=== PATIENT | female | born 1935 | race Caucasian/White ===

== ENCOUNTER 2017-12-14 14:00 | Inpatient (IN) | payer OTHER ==
[~2017-12-14] VITALS: Ht 157.5 cm; Wt 48.5 kg
[2017-12-14] MEDS ORDERED: COUMADIN2.5 MG (14:24)
[2017-12-14] MEDS ORDERED: METFORMIN HCL500 MG (14:24)
[2017-12-14] MEDS ORDERED: AVAPRO300 MG (14:26)
[2017-12-14] MEDS ORDERED: HYDRODIURIL12.5 MG (14:26)
[2017-12-14] MEDS ORDERED: GABAPENTIN100 MG (14:27)
[2017-12-14] MEDS ORDERED: FLONASE16 GM (14:27)
[2017-12-14] MEDS ORDERED: CLARITIN5 MG (14:27)
[2018-01-02] MEDS ORDERED: AVAPRO300 MG PO (14:11)
[2018-01-02] MEDS ORDERED: LASIX20 MG PO (14:11)
[2018-01-02] MEDS ORDERED: COUMADIN4 MG PO (14:11)
[2018-01-02] MEDS ORDERED: NeurRONTin 100mg cap PO (14:11)
[2018-01-02] MEDS ORDERED: DOXYCYCLINE HY100 MG PO (14:11)
[2018-01-02] MEDS ORDERED: TOPROL XL50 M1 PO (14:11)
[2018-01-02] MEDS ORDERED: Neurin-Sl Tablet Sl SL (14:11)
[2018-01-02] MEDS ORDERED: PANTOPRAZOLE SO40 MG PO (14:11)
[2018-01-02] MEDS ORDERED: B Complex CAPSULE PO (14:11)
[2018-01-02] MEDS ORDERED: FOLIC ACID1 MG PO (14:11)
== END 2018-01-02 19:29 | disposition home or self-care (01) | DRG 329 ==
LOC: EDBD 14:00 → ER 14:00 → MEDJ 21:50 → SEC-K 21:50 → EDBD 21:50 → SEC-K 22:25 → MEDI 12-15 14:41 → MEDJ 12-15 14:41
PROVIDERS: Colon & Rectal Surgery
PROC: B44HZZZ Ultrasonography of Bilateral Lower Extremity Arteries (ICD-10-PCS; 2017-12-14)
PROC: B54DZZZ Ultrasonography of Bilateral Lower Extremity Veins (ICD-10-PCS; 2017-12-14)
PROC: BW21ZZZ Computerized Tomography (CT Scan) of Abdomen and Pelvis (ICD-10-PCS; 2017-12-14)
PROC: B246ZZZ Ultrasonography of Right and Left Heart (ICD-10-PCS; 2017-12-14)
PROC: 30233N1 Transfusion of Nonautologous Red Blood Cells into Peripheral Vein, Percutaneous Approach (ICD-10-PCS; 2017-12-15)
PROC: 4A12X4Z Monitoring of Cardiac Electrical Activity, External Approach (ICD-10-PCS; 2017-12-15)
PROC: 4A033R1 Measurement of Arterial Saturation, Peripheral, Percutaneous Approach (ICD-10-PCS; 2017-12-21)
PROC: 3E0F7GC Introduction of Other Therapeutic Substance into Respiratory Tract, Via Natural or Artificial Opening (ICD-10-PCS; 2017-12-21)
PROC: 30233K1 Transfusion of Nonautologous Frozen Plasma into Peripheral Vein, Percutaneous Approach (ICD-10-PCS; 2017-12-21)
PROC: 0DTP0ZZ Resection of Rectum, Open Approach (ICD-10-PCS; 2017-12-22)
PROC: 0DQR0ZZ Repair Anal Sphincter, Open Approach (ICD-10-PCS; 2017-12-22)
PROC: 0DJD8ZZ Inspection of Lower Intestinal Tract, Via Natural or Artificial Opening Endoscopic (ICD-10-PCS; 2017-12-22)
PROC: 0JQC0ZZ Repair Pelvic Region Subcutaneous Tissue and Fascia, Open Approach (ICD-10-PCS; principal; 2017-12-22 07:00)
PROC: 8E0ZXY6 Isolation (ICD-10-PCS; 2017-12-25)
DX: K62.3 Rectal prolapse (principal); J81.0 Acute pulmonary edema; I50.33 Acute on chronic diastolic (congestive) heart failure; K92.2 Gastrointestinal hemorrhage, unspecified; D62 Acute posthemorrhagic anemia; R18.8 Other ascites; I85.10 Secondary esophageal varices without bleeding; N39.0 Urinary tract infection, site not specified; J95.89 Other postprocedural complications and disorders of respiratory system, not elsewhere classified; J98.11 Atelectasis; J90 Pleural effusion, not elsewhere classified; E11.42 Type 2 diabetes mellitus with diabetic polyneuropathy; E11.65 Type 2 diabetes mellitus with hyperglycemia; Z79.01 Long term (current) use of anticoagulants; Z95.2 Presence of prosthetic heart valve; Z95.0 Presence of cardiac pacemaker; I35.0 Nonrheumatic aortic (valve) stenosis; I27.29 Other secondary pulmonary hypertension; I87.2 Venous insufficiency (chronic) (peripheral); K74.69 Other cirrhosis of liver; N81.11 Cystocele, midline; I48.0 Paroxysmal atrial fibrillation; I34.0 Nonrheumatic mitral (valve) insufficiency; R15.9 Full incontinence of feces; R09.02 Hypoxemia; B96.29 Other Escherichia coli [E. coli] as the cause of diseases classified elsewhere; Z16.12 Extended spectrum beta lactamase (ESBL) resistance; I11.0 Hypertensive heart disease with heart failure